=== PATIENT | female | born 1965 | race African-American/Black ===

== ENCOUNTER → 2023-12-30 | Outpatient (CLI) | payer MEDICARE ==
[~2023-12-30] MED LIST: ALDACTONE 25MG25 MG PO; CARVEDILOL25 MG PO; CLOPIDOGREL75 M2 PO; LEVETIRACETAM500 M2 PO; LOSARTAN POTASS25 MG PO
== END ==
LOC: RAD 09:06
DX: S60.221D Contusion of right hand, subsequent encounter (principal)